=== PATIENT | female | born 1955 | race Caucasian/White ===

== ENCOUNTER 2021-03-16 12:26 | Outpatient (CLI) | payer OTHER, SELFPAY ==
--- NOTE | ~2021-03-16 | XR_ITS ---
XR chest 2V 03/16/2021 14:02 Indication: Shortness of breath Procedure: PA and lateral views of the chest Comparison: No prior studies for comparison. Findings: Cardiomegaly. Pacemaker leads are present. There is left basilar airspace disease which may represent atelectasis or pneumonia. No significant effusion. No pneumothorax. There is a calcified g ranuloma the right lower lobe. Impression: 1: Left basilar airspace disease may represent atelectasis or developing pneumonia. 2: Cardiomegaly. Reviewed, dictated and finalized at location [facility]. [facility] Impression: 1: Left basilar airspace disease may represent atelectasis or developing pneumo kiah. 2: Cardiomegaly.
[2021-03-16 13:05] VITALS: PULSE 62; O2SAT 93
[2021-03-16 13:10] VITALS: PULSE 88; O2SAT 86
[2021-03-16 13:15] VITALS: PULSE 90; O2SAT 88
[2021-03-16 13:20] VITALS: O2SAT 92
[2021-03-16 13:35] VITALS: PULSE 64; O2SAT 92
[2021-03-16 13:37] LABS: Alveolar/Arterial O2 Gradient 10.9 mmHg; Base Excess ABG 0.7 mEq/l (+/-2.0); Carboxyhemoglobin 0.3 % THb (0-2.0); Fractional Inspired Oxygen 30 %; HCO3 ABG 25.8 mEq/l (22.0-26.0); Methemoglobin ABG 0.2 %THb (0-1.5); Oxygen Content ABG 15.7 %vol (16.0-22.0); Oxygen Saturation ABG 98.9 % (95.0-100.0); Oxyhemoglobin 97.8 % THb (90.0-100.0); PCO2 ABG 43.5 mmHg (35.0-45.0); PO2 ABG 151.9 mmHg (80.0-100.0); PO2 FiO2 Ratio Arterial Blood 5.06 %; Reduced Hemoglobin 1.7 %THb (0-5.0); Total Hemoglobin 11.2 g/dL (12.0-18.0); pH ABG 7.391 (7.350-7.450)
[2021-03-16 13:39] LABS: Device NASAL CANNULA; Modified Allen's Test Pass; Site Drawn LEFT RADIAL
[2021-03-16 13:40] LABS: Liters per Minute 2.5 LPM
--- NOTE | 2021-03-16 14:35 | HOMEO2EVAL ---
Evaluation was performed at [facility] Home Oxygen Evaluation RC: Home Oxygen (O2) Evaluation Start: 03/16/21 14:32 Freq: Status: Active Protocol: RPE Activity Type Activity Date Activity User E-Sign Co-Sign Detail Recorded Client Recorded Date Recorded By Document 03/16/21 13:05 [email or web address] [email or web address] 03/16/21 14:35 DJO Document 03/16/21 13:10 [email or web address] [email or web address] 03/16/21 14:35 DJO Document 03/16/21 13:15 [email or web address] [email or web address] 03/16/21 14:35 DJO Document 03/16/21 13:20 [email or web address] [email or web address] 03/16/21 14:35 DJO Document 03/16/21 13:35 [email or web address] [email or web address] 03/16/21 14:35 DJO 03/16/21 03/16/21 03/16/21 13:05 13:10 13:15 Home O2 Evaluation Test Phase Resting Exercise Exercise Oxygen Delivery Room Air Room Air Nasal Cannula Oxygen Flow Rate (L/min) 1 Pulse Oximetry (90-100 %) 93 86 L 88 L Pulse Rate (60-100 beats/min) 62 88 90 Activity Tolerance Treatment Charges O2 Evaluation - Outpatient 03/16/21 03/16/21 13:20 13:35 Home O2 Evaluation Test Phase Exercise Resting Oxygen Delivery Nasal Cannula Room Air Oxygen Flow Rate (L/min) 2 Pulse Oximetry (90-100 %) 92 92 Pulse Rate (60-100 beats/min) 64 Activity Tolerance Poor Treatment Charges
== END 2021-03-16 12:27 | disposition home or self-care (01) ==
PROVIDERS: Visit Provider Nurse Practitioner Family
DX: J96.11 Chronic respiratory failure with hypoxia (principal); J96.12 Chronic respiratory failure with hypercapnia; R05.9 Cough, unspecified; I51.7 Cardiomegaly; R91.8 Other nonspecific abnormal finding of lung field
CPT/HCPCS: 36600; 71046; 82375; 82805; 83050; 94618